=== PATIENT | male | born 1965 | race Caucasian/White ===

== ENCOUNTER 2023-07-21 07:51 | Day surgery (SDC) | payer OTHER, SELFPAY ==
[2023-07-19 08:36] VITALS: BMI 26.6
--- NOTE | 2023-07-21 | PATH_ITS ---
[facility] Accession Number: [id number] No. of containers..01 Tissue . 01 Material submitted: . body - RIGHT SPERMATOCELE . 01 Diagnosis: RIGHT SPERMATOCELE, EXCISION: Consistent with spermatocele. GURWINDER 07/26/2023 1036 Local . 01 Electronically signed: . Gifty Devine MD, Pathologist NPI- [id number] . 01 Gross description: . Received in formalin with two identifiers and right spermatocele, is a thin-walled intact cystic structure 6.3 x 5.4 x 1.6 cm. Inked blue and containing cloudy serous fluid. No excrescences or lesions are identified. [employer] sections are submitted in cassette A1. ([id number]) /GURWINDER 07/22/2023 2151 Local . 01 Pathologist provided ICD-10: N43.40 . 01 CPT . 226811 Specimen Comment: A courtesy copy of this report has been sent to [phone] Performed at: [address] [facility] [id number], [place], [place] [id number] MD Oswald Pat MD Phone: [phone]
[2023-07-21 08:18] VITALS: BP 136/80; PULSE 56; RESP 17; TEMP 36.1; O2SAT 100; BMI 26.6
[2023-07-21] MEDS: LACTATED RINGERS 1,000 ML 21 ML IV ×2 (08:29→11:29)
[2023-07-21] MEDS: ACETAMINOPHEN IV 1,000 MG/100 ML VIAL 400 MG IV (08:30)
--- NOTE | 2023-07-21 09:27 | PM.PREOP ---
Pre-operative Note Interval Note History & Physical reviewed/Exam performed by Physician: Yes Changes to H&P: No
--- NOTE | 2023-07-21 09:45 | P.HP_ITS ---
History of Present Illness History of Present Illness Date Patient Seen: 07/21/23 Time Patient Seen: 09:30 [place] [facility] [place]: Malcolm is a 58-year-old male presenting today for scheduled right spermatocele ectomy/hydrocelectomy. He has had an enlarging right scrotal content mass for at least the last 5 years. Scrotal ultrasound 05/31/2021 identified a 6 mm left epididymal head cyst and a 5.2 cm right epididymal head cluster of cysts. The structure continues to enlarge in the interval and has become more symptomatic. Activities of daily living, were, and recreation including water sports have been encumbered by the enlarging right scrotal content fluid collection. He request definitive intervention. [facility] Medical History Left hydrocele Spermatocele of epididymis, multiple Surgical History Hx of circumcision History of ankle surgery Family History Grandfather Cancer Social History marital status: number of children: 0 household members: spouse Smoking Status: Never smoker alcohol intake: current caffeine: No Type(s) of exercise: walking and regular exercise frequency: 3-4 times per week Meds Home Medications and Allergies Home Medications Medication Instructions Recorded Confirmed Type No Known Home Medications 08/16/21 06/14/23 History Allergies Allergy/AdvReac Type Severity Reaction Status Date / Time No Known Drug Allergies Allergy Verified 07/21/23 08:13 Review of Systems Review of Systems ROS: Yes All systems reviewed with the patient and are negative except as otherwise documented Exam Vital Signs (past 8 hours): - 07/21/23 08:18 Temperature 96.9 F L Pulse Rate 56 L Respiratory Rate 17 Blood Pressure 136/80 Pulse Oximetry 100 Oxygen Delivery Method Room Air Oxygen Delivery Method Room Air Narrative Exam Narrative: The patient well-developed middle-aged male in no acute distress. Head/neck-sclera clear pupils are round and equal bilaterally. No visible evidence of adenopathy or JVD. Chest-equal and unlabored expansion bilaterally. Heart-normal sinus rhythm. Genitalia-normal adult circumcised male phallus. Scrotum is without lesion, rash, or mass. The right scrotal contents are enlarged with a firm and palpable fluid collection occupying most of the right hemiscrotum and displacing the testis inferiorly. The structure also displaces the left testis laterally and superiorly. Assessment & Plan Assessment and plan (1) Spermatocele of epididymis, multiple: Status: Acute Plan 1. Proceed with scheduled RIGHT SPERMATOCELECTOMY/HYDROCELECTOMY. Explained again in the presence of his , Michelle, the common expected side effects, possible complications, perioperative limitations/restrictions, and reasonable expectations of outcomes and recovery following proposed interventions above. Provided detailed explanation of drain management and follow-up postoperative contacts with the urology clinic. They had no further clarifying questions or concerns indicated desire to proceed as scheduled today.
[2023-07-21] MEDS: CEFAZOLIN 2 GM/100 ML PREMIX 100 ML IV (10:06)
--- NOTE | 2023-07-21 10:17 | SUR.OPER ---
Supine on padded OR bed, head on pillow, arms secured on padded arm boards at <90 degrees abduction, legs uncrossed, safety belt at thigh, tape over blanket over lower legs.
[2023-07-21] MEDS: BUPIVACAINE LIPOSOME 266 MG/20 ML VIAL INJ (10:39)
[2023-07-21] MEDS: BUPIVACAINE 0.25% (PF) 30 ML, EPINEPHrine 0.15 MG INJ (10:39)
[2023-07-21] MEDS: BACITRACIN 28 GM OINT 1 APPLIC TOP (10:40)
--- NOTE | 2023-07-21 11:41 | SUR.PHASEI ---
1143 - Received to PACU after genreal anesthesia. Oral airway in place, no further respiratory assistance required. Report from Gia Navarrete RN and Dr Braswell.
[2023-07-21 11:43] VITALS: BP 132/79; PULSE 75; RESP 12; TEMP 36.4; O2SAT 93
--- NOTE | 2023-07-21 11:45 | PM.OP.1 ---
Operative Date/Time/Diagnoses Date of procedure: 07/21/23 Time of procedure: 11:35 Pre-op diagnosis: 1. Multiloculated right spermatocele. Post-op diagnosis: same Procedure & Clinicians Procedure: 1. Right spermatocelectomy. Same procedure as scheduled: Yes Indications: 1. Right multiloculated spermatocele. Surgeon: Deuce Jarvis Click Yes if Unassisted: Yes Anesthesia Type: General and Local (0.5% Marcaine and 1.33% Exparel.) Operative Notes Findings: 1. Small amount of fluid in the intra tunical space. 2. Large multiloculated right epididymal head cyst. Neck was located in the inner aspect of the epididymal head. Closure Type: primary Specimen(s): other (Spermatocele sac.) Applied: other (10 Cymraes fenestrated Sravan drain to bulb self suction.) Estimated Blood Loss (mL): 2 Blood products transfused: none Procedure in detail: The patient was positioned in supine was administered general anesthesia. The lower abdomen, genitalia, and groin were then prepped and draped in sterile fashion. Local anesthetic was used to infiltrate the midline skin and dartos fascia of the scrotum. The needle-tip cautery pen was then used to divide the skin and subcutaneous tissue for limited area in the anterior midline scrotal raphae. The cautery pen was then used to continue dissection down to the level of the tunica vaginalis right hemiscrotum. The tunica vaginalis was then opened vertically in the right testicle and complex spermatocele was then delivered from the right hemiscrotum into the operative field. Next, painstaking clearance of adherent fibromuscular fibrovascular connective tissue was undertaken to isolate and identify of the borders of the fluid collection. This was conducted using blunt, cautery, and sharp technique. The epididymal head was elevated from the surface of a portion of the tunic albuginea. The neck was identified. A hemostatic clamp was applied across the base in the spermatocele was then amputated and submitted to pathology for routine gross and microscopic examination. The base of the spermatocele neck was then ligated using a 3-0 Monocryl with a overhand closure and pweida-ae-rdput redundant technique. Local anesthetic was then used to infiltrate the right inferior lateral scrotal wall, the midline dartos fascia, and the skin layer. A 10 Cymraes fenestrated Sravan drain was then passed from inside out through the anesthetized site at the inferior lateral aspect of the right hemiscrotum. The drain was trimmed to appropriate length for proper positioning within the right hemiscrotum. It was secured at the level of skin with a double-arm 2-0 silk using Wan sandal technique in usual fashion. Next, the midline dartos fascia was closed with a running 2 0 Monocryl. The skin was then reapproximated using a 4-0 Monocryl employing a horizontal mattress technique. The drain was then placed of bulb self suction. A generous amount of antibiotic ointment was applied to the midline scrotal incision. Dry sterile fluffs were then applied to the scrotum. The patient was then fitted with the athletic supporter. The patient was then awakened, transferred to [facility], then transported recovery in stable condition. Complications: none Post-operative Condition: stable Disposition: PACU Plan for aftercare: Discharge home.
[2023-07-21 11:48] VITALS: BP 129/77; PULSE 84; RESP 12; O2SAT 96
[2023-07-21 11:53] VITALS: BP 134/83; PULSE 70; RESP 12; O2SAT 96
[2023-07-21 11:58] VITALS: BP 135/85; PULSE 75; RESP 14; TEMP 36.3; O2SAT 97
== END 2023-07-21 12:59 | disposition home or self-care (01) ==
PROVIDERS: PCP Family Medicine; Referring Provider Specialist; Visit Provider Specialist
DX: N43.40 Spermatocele of epididymis, unspecified (principal)
CPT/HCPCS: 54840; C9290; J0136; J0171; J0690; J1100; J1885; J2405; J2704; J3010